=== PATIENT | female | born 1990 | race Two or more races ===

== ENCOUNTER 2023-07-06 16:26 | Inpatient (IN) | payer MEDICAID, OTHER ==
[~2023-07-06] VITALS: Ht 165.1 cm; Wt 80.6 kg
[2023-07-06 17:15] LABS: BASOPHILS % (AUTO) 0.5 % (0.0-2.0); EOSINOPHILS % (AUTO) 0.9 % (1.0-6.0); HEMATOCRIT 40.3 % (36-46); HEMOGLOBIN 13.4 g/dL (12.0-16.0); LYMPHOCYTES # (AUTO) 2.5 K/uL (1.0-4.8); LYMPHOCYTES % (AUTO) 23.1 % (22.0-44.0); MEAN CORPUSCULAR HEMOGLOBIN 32.3 pg (26.0-34.0); MEAN CORPUSCULAR HGB CONC 33.3 G/dL (31.0-37.0); MEAN CORPUSCULAR VOLUME 97 fL (80-100); MONOCYTES # (AUTO) 0.6 K/uL (0.1-1.0); MONOCYTES % (AUTO) 6.1 % (2.0-9.0); NEUTROPHILS # (AUTO) 7.4 K/uL (1.8-7.7); NEUTROPHILS % (AUTO) 69.4 % (40.0-70.0); PLATELET COUNT (AUTO) 286 K/uL (150-450); RED BLOOD CELL COUNT(AUTO) 4.16 MIL/uL (4.00-5.20); RED CELL DISTRIBUTION WIDTH 13.2 % (11.5-14.5); WHITE BLOOD COUNT (AUTO) 10.7 K/uL (4.5-11.0)
[2023-07-06 17:27] LABS: ANION GAP 5 mmol/L (8-16); CARBON DIOXIDE 30 mmol/L (22-29); CHLORIDE 103 mmol/L (98-107); CREATININE 0.85 mg/dL (0.60-1.30); GLOMERULAR FILTR. RATE CALC > 60 mL/min (>60); GLUCOSE,RANDOM 106 mg/dL (70-110); POTASSIUM 3.5 mmol/L (3.5-5.1); SODIUM SERUM 138 mmol/L (136-145); UREA NITROGEN, BLOOD 12 mg/dL (7-18)
[2023-07-06] MEDS ORDERED: HALOPERIDOL 5 MG TABLET PO PRN (17:30)
[2023-07-06] MEDS ORDERED: LORazepam 2 MG TABLET PO PRN (17:30)
[2023-07-06] MEDS ORDERED: ZOLPIDEM TARTRATE 10 MG TABLET PO PRN (17:30)
[2023-07-06 17:32] LABS: ALANINE AMINOTRANSFERASE 19 U/L (12-78); ALBUMIN 3.8 g/dL (3.4-5.0); ALCOHOL, BLOOD (SERUM) < 3 mg/dL (0-10); ALKALINE PHOSPHATASE 81 U/L (46-116); ASPARTATE AMINOTRANSFERASE 16 U/L (15-37); BILIRUBIN,TOTAL 0.4 mg/dL (0.1-1.0); TOTAL PROTEIN, SERUM 7.7 g/dL (6.4-8.2)
[2023-07-06] MEDS ORDERED: IBUPROFEN 600 MG TABLET PO ONE (18:30)
[2023-07-06] MEDS ORDERED: LORazepam 2 MG TABLET PO ONE (18:30)
[2023-07-06 19:13] LABS: COVID AG,FIA SOURCE NASAL SWAB
[2023-07-06 19:14] LABS: PH,URINE DRUG SCREEN 6.5 (5.0-8.0)
[2023-07-06 19:21] LABS: ALCOHOL, URINE DRUG SCREEN NEGATIVE (NEGATIVE); AMPHET/METH SCREEN,URINE NEGATIVE (NEGATIVE); BARBITURATE SCREEN, URINE NEGATIVE (NEGATIVE); BENZODIAZEPINES SCREEN,URINE NEGATIVE (NEGATIVE); CANNABINOID SCREEN,URINE NEGATIVE (NEGATIVE); COCAINE SCREEN,URINE NEGATIVE (NEGATIVE); METHADONE SCREEN, URINE NEGATIVE (NEGATIVE); OPIATE SCREEN,URINE NEGATIVE (NEGATIVE); PHENCYCLIDINE SCREEN,URINE NEGATIVE (NEGATIVE)
[2023-07-06 19:35] LABS: SARS-COV2 (COVID) ANTIGEN,FIA Negative (Negative)
[2023-07-06] MEDS ORDERED: LIDOCAINE 1% 10 ML VIAL SQ ONE (22:30)
[2023-07-07] MEDS ORDERED: PERTUSS(ACELL),DIPH,TET VAC/PF 0.5 ML SYRINGE IM. ONE (00:30)
[2023-07-07 03:26] VITALS: BP 116/76; PULSE 88; RESP 18; TEMP 97.2; O2SAT 100
[2023-07-07 09:01] VITALS: BP 120/82; PULSE 88; RESP 16; TEMP 98.1; O2SAT 99
[2023-07-07] MEDS: BACITRACIN 28 GM OINTMENT TP SCH ×2 (12:41→16:38)
[2023-07-07 16:02] VITALS: BP 120/80; PULSE 84; RESP 18; TEMP 98.2; O2SAT 98
[2023-07-07] MEDS ORDERED: BACITRACIN 28 GM OINTMENT TP SCH (17:00)
[2023-07-07 20:30] VITALS: BP 117/65; PULSE 77; RESP 18; TEMP 97.1; O2SAT 99
[2023-07-08 08:35] VITALS: BP 122/65; PULSE 86; RESP 16; TEMP 97.5; O2SAT 98
[2023-07-08] MEDS: BACITRACIN 28 GM OINTMENT TP SCH (09:12)
== END 2023-07-08 13:00 | disposition home or self-care (01) | DRG 751 ==
LOC: EMS 16:29 → B2S 07-07 00:13
PROVIDERS: ADMIT Psychiatry & Neurology Child & Adolescent Psychiatry; ATTEND Psychiatry & Neurology Child & Adolescent Psychiatry
DX: F33.1 Major depressive disorder, recurrent, moderate (principal); R45.851 Suicidal ideations; F43.21 Adjustment disorder with depressed mood; S61.512A Laceration without foreign body of left wrist, initial encounter; Z20.822 Contact with and (suspected) exposure to COVID-19; X58.XXXA Exposure to other specified factors, initial encounter; Y93.89 Activity, other specified; Y92.89 Other specified places as the place of occurrence of the external cause; Y99.8 Other external cause status; Z63.8 Other specified problems related to primary support group
CPT/HCPCS: 80053; 80307; 84703; 85025; 90715; 99285; G0480; J3490